=== PATIENT | male | born 1980 | race Caucasian/White ===

== ENCOUNTER 2018-05-29 02:49 | Emergency (ER) | payer BC ==
[~2018-05-29] VITALS: Ht 175.3 cm; Wt 81.8 kg
[~2018-05-29 02:49] MED LIST: ABILIFY10 MG PO; CEPHALEXIN500 MG PO; CRUTCH1 EACH; DIPHENHYDRAMINE25 MG PO; HALOPERIDOL5 MG PO; SERTRALINE HCL25 MG PO
--- OUTSIDE RECORDS SUMMARY | 2018-05-29 02:54 | XMS ---
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 [place] - 2 Visits in 30 Days CARE PROVIDERS There are no care providers on record at this time. Luis has no Care Guidelines for this patient. Care History Medical/Surgical 05/18/2018 [facility] - [facility] RECEIVED ED PHYSICIAN CONSULT- - [facility] CALLED AND LEFT PATIENT 3 VOICEMAILS- PATIENT HAS BEEN RECENTLY SE[facility]. - [facility] WILL SEND A LETTER TO PATIENT FOR NO PCP. Luda VISIT COUNT (12 MO.) 4 [facility] 3 [facility]. TOTAL 7 NOTE: Visits indicate total known visits. ED/UCC VISIT TRACKING (12 MO.) 05/29/2018 02:50 [facility] [place] TYPE: Emergency COMPLAINT: - COLD SYMPTOMS 05/22/2018 08:18 [facility] [place] TYPE: [place] DIAGNOSES: - Mental Health Evaluation - Schizoaffective disorder, unspecified - Unknown 05/16/2018 18:27 [facility] [place] TYPE: Emergency DIAGNOSES: - Altered Mental - Schizophrenia, unspecified - Problems related to other legal circumstances - Mental Health Problem 05/16/2018 15:59 [facility] [place] TYPE: [place] DIAGNOSES: - Mental Health Problem - Mental Evaluation - Schizophrenia, unspecified 05/14/2018 19:11 [facility] [place] TYPE: [place] DIAGNOSES: - Medical Clearance - Cellulitis of unspecified part of limb - Paranoid schizophrenia - Clearance for [facility] - Manic episode, unspecified 05/13/2018 21:10 [facility] [place] TYPE: Emergency COMPLAINT: - L FOOT PAIN, NON INJURY DIAGNOSES: - Pain in right foot - Cellulitis of left lower limb - Pain in left foot 05/09/2018 12:03 [facility] [place] TYPE: Emergency COMPLAINT: - ANXIETY DIAGNOSES: - Anxiety disorder, unspecified INPATIENT VISIT TRACKING (12 MO.) No inpatient visits to display in this time frame [email or web address]
[2018-05-29] MEDS ORDERED: OLANZAPINE5 MG PO (03:03)
[2018-05-29] MEDS ORDERED: ARIPIPRAZOLE15 MG PO (03:03)
== END 2018-05-29 03:17 | disposition home or self-care (01) ==
LOC: ED 02:49
DX: R09.81 Nasal congestion (principal)

== ENCOUNTER 2024-01-31 11:37 | Emergency (ER) | payer OTHER ==
[~2024-01-31] VITALS: Ht 175.3 cm; Wt 84.5 kg
[~2024-01-31 11:37] MED LIST changes: +ARIPIPRAZOLE15 MG PO; +OLANZAPINE5 MG PO
[2024-01-31] MEDS ORDERED: SODIUM CHLORIDE 0.9% 1,000 ML IV ONE (12:00)
[2024-01-31 12:17] LABS: HEMATOCRIT 43.9 % (35.0-50.0); MCH 27.8 (27-36); MCHC 34.2 g/dl (30-36); MCV 81.3 fl (81-99); PLATELET COUNT 181 K/uL (140-440); RDW 13.6 (10.5-15.0)
[2024-01-31 12:19] LABS: BILIRUBIN, URINE NEGATIVE (negative); BLOOD/HGB, URINE NEGATIVE (Negative); KETONE, URINE NEGATIVE (Negative); LEUK ESTERASE, URINE NEGATIVE (negative); NITRITE, URINE NEGATIVE (negative)
[2024-01-31 12:34] LABS: AMPHETAMINES, URINE NEGATIVE (NEGATIVE); BARBITURATES, URINE NEGATIVE (NEGATIVE); BENZODIAZEPINE, URINE NEGATIVE (NEGATIVE); BUPRENORPHINE, URINE NEGATIVE (NEGATIVE); CANNABINOID, URINE NEGATIVE (NEGATIVE); COCAINE, URINE NEGATIVE (NEGATIVE); ECSTASY, URINE NEGATIVE (NEGATIVE); FENTANYL, URINE NEGATIVE (NEGATIVE); METHADONE, URINE NEGATIVE (NEGATIVE); OPIATES, URINE NEGATIVE (NEGATIVE); OXYCODONE, URINE NEGATIVE (NEGATIVE); PHENCYCLIDINE, URINE NEGATIVE (NEGATIVE)
[2024-01-31 12:35] LABS: ALBUMIN 3.8 g/dL (3.4-5.0); ALBUMIN/GLOBULIN RATIO 1.12 (1.1-2.4); ANION GAP 15.6 (7-21); BILIRUBIN, TOTAL 0.8 ng/dL (0.2-1.0); BUN/CREATININE RATIO 9.87 (6.0-28.6); CALCIUM 8.4 mg/dL (8.5-10.1); CREATININE, SERUM 0.81 mg/dL (0.70-1.30); POTASSIUM 3.6 mmol/L (3.5-5.1); PROTEIN, TOTAL 7.2 g/dL (6.4-8.2)
[2024-01-31 12:44] LABS: LYMPHOCYTES, MANUAL DIFF 55; MONOCYTES, MANUAL DIFF 3; NEUTROPHILS, MANUAL DIFF 42
[2024-01-31] MEDS ORDERED: VALACYCLOVIR HCL 500 MG TAB PO ONE (13:30)
[2024-01-31] MEDS ORDERED: predniSONE 20 MG TAB PO ONE (13:30)
[2024-01-31] MEDS ORDERED: VALTREX500 MG PO (14:05)
[2024-01-31] MEDS ORDERED: PREDNISONE20 MG PO (14:05)
[2024-01-31 14:24] VITALS: BP 141/92
--- NOTE | 2024-02-01 09:01 | EKG ---
[facility] [address] [place], [place] [address] Signed Normal sinus rhythm Normal ECG No previous ECGs available Confirmed by Judie Jackson MD ([id number]) on 02/01/2024 9:01:01 AM Electronically Signed By: JUDIE JACKSON 02/01/24 0901 PATIENT NAME: HUSSAIN LICEA Electrocardiogram DATE OF : 84 PHYSICIAN: JUDIE JACKSON REPORT #: [id number] REPORT IS CONFIDENTIAL AND NOT TO BE RELEASED WITHOUT AUTHORIZATION
== END 2024-01-31 14:22 | disposition home or self-care (01) ==
LOC: ED 11:37
PROVIDERS: Emergency Medicine
DX: R20.0 Anesthesia of skin (principal); R20.2 Paresthesia of skin; G51.0 Bell's palsy; Z79.899 Other long term (current) drug therapy
CPT/HCPCS: 36415; 70450; 80053; 80307; 81003; 83735; 85025; 93005; 93010; 99284; G0480; J7030; J7512